=== PATIENT | female | born 2000 | race Hispanic/Latino ===

== ENCOUNTER 2020-02-03 10:38 | Emergency (ER) | payer BC ==
[~2020-02-03] VITALS: Ht 160 cm; Wt 61.2 kg
--- OUTSIDE RECORDS SUMMARY | 2020-02-03 11:24 | XMS REPORT | Clinical Summary ---
Author Author [facility] ict Organization [facility] ict Address Unknown Phone Unavailable Care Team Providers Care Adult Literacy Instructor Name Role Phone PCP Unavailable Allergies Comments Active Allergy Reactions Severity Noted Date Nsaids (Non-Steroidal 10/25/2017 Anti-Inflammatory Drug) Medications End Date Status Medication Sig Dispensed Refills Start Date Active ketorolac (TORADOL) 10 mg Take 10 mg by 0 tablet mouth every 6 hours as needed for Pain. Active esomeprazole (NEXIUM) 40 Take 40 mg by 0 mg delayed release mouth every capsule morning (before breakfast). Active Problems Problem Noted Date UTI (urinary tract infection) 10/26/2017 LLQ pain Encounters Care Team Description Date Type Specialty Francoise Parrish NP Cox, Haley, LVN Encounter for immunization (Primary Dx) 04/16/2019 Nurse Only Family Practice after 02/02/2019 Immunizations Name Administration Dates Next Due Hepatitis B Adult 04/16/2019 Social History Date Tobacco Use Types Packs/Day Years Used Quit: 05/01/2016 Former Smoker Cigarettes 0.5 Smokeless Tobacco: Never Used Tobacco Cessation: Counseling Given: Yes Sex Assigned at Date Recorded Not on file Industry Job Start Date Occupation Not on file Not on file Not on file Travel End Travel History Travel Start No recent travel history available. 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
--- OUTSIDE RECORDS SUMMARY | 2020-02-03 11:25 | XMS REPORT | Continuity of Care Document ---
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 11/16/2019 [facility] Medications Medication Details Route Status Patient Instructions Ordering Provider Order Date Source Xulane 1 patch to skin off 1 w [place] then repeat on the same day every week Transdermal Active 150-35 MCG/24HR Transdermal once weekly Yousif 11/14/2019 [facility] Xulane 1 patch to skin off 1 w [place] then repeat on the same day every week Transdermal Active 150-35 MCG/24HR Transdermal [facility] Nexium 1 capsule Orally Active 40 MG Orally Once a day [facility] Metformin HCl 1 tablet with a meal Orally Active 850 MG Orally Once a day [facility] Allergies, Adverse Reactions, Alerts Substance Category Reaction Severity Reaction type Status Date Reported Comments Source nsaids Adverse Reaction gastric ulcers Adverse Reaction Active 11/14/2019 [facility] Immunizations No Data Provided for This Section Results No Data Provided for This Section Pathology Reports No Data Provided for This Section Diagnostic Reports No Data Provided for This Section Consultation Notes No Data Provided for This Section Discharge Summaries No Data Provided for This Section History and Physicals No Data Provided for This Section Vital Signs Vital Sign Value Date Comments Source Weight 143.6 11/14/2019 [facility] Height 63 0 11/14/2019 [facility] Temperature Oral (F) 99.1 F 11/14/2019 [facility] Heart Rate 86 11/14/2019 [facility] Diastolic (mm Hg) 80 11/14/2019 [facility] Systolic (mm Hg) 118 11/14/2019 [facility] Encounters No Data Provided for This Section Procedures No Data Provided for This Section Assessment and Plan No Data Provided for This Section Plan of Care No Data Provided for This Section Social History No Data Provided for This Section Family History No Data Provided for This Section Advance Directives No Data Provided for This Section Functional Status No Data Provided for This Section
--- OUTSIDE RECORDS SUMMARY | 2020-02-03 11:25 | XMS REPORT | Continuity of Care Document ---
Author Author [facility] Organization [facility] Address [address] [place] [address] Phone Unavailable Care Team Providers Care Geriatrics Physician Name Role Phone Francois MANAGER FILE, Francoise Attphys Jesus BLACKNLa Attphys Payers Payer Name Policy Type Policy Number Effective Date Expiration Date [facility] [id number] UNSCREENEDxxxxxxxx [id number] [place] [address] xxxxxxxxx 2017 00:00:00 [facility] Problems Condition Name Condition Details Condition Category Status Onset Date Resolution Date Last Treatment Date Treating Clinician Comments Source UTI (urinary tract infection) UTI (urinary tract infection) Disease Active 2017-10-26 00:00:00 [facility] Paresthesia Pare sthesia Active Problem 12/12/2019 [facility] Problem Active 2 02:01:16 Mando Merrill PCOS (polycystic ovarian syndrome) PCOS (polycystic ovarian syndrome) Active Problem 12/12/2019 [facility] Problem Active 2019-12-12 02:01:16 Mando Merrill 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 11/16/2019 [facility] Diagnosis Active 2019-11-16 02:02:25 Hay Merrill LLQ pain LLQ pain Disease Active [facility] Allergies, Adverse Reactions, Alerts Allergy Name Allergy Type Status Severity Reaction(s) Onset Date Inacti ve Date Treating Clinician Comments Source nsaids nsaids Active gastric ulcers 2019-11-14 00:00:00 [facility] NSAIDS (Non-Steroidal Anti-Inflamma DA Active U 2018-01-01 0 00:00:00 [facility] Nsaids (Non-Steroidal Anti-Inflammatory Drug) Propensi ty to adverse reactions to drug Active 2017-10-25 00:00:00 [facility] NSAIDS (Non-Steroidal Anti-Inflamma DA Active U 2 00:00:00 [facility] Social History Social Habit Start Date Stop Date Quantity Comments Source Sex Assigned At [facility] History of tobacco use 2016-05-01 00:00:00 Current smoker [facility] Smoking Status Start Date Stop Date Source Former smoker 2019-04-16 00:00:00 2019-04-16 00:00:00 [facility] Medications Ordered Medication Name Filled Medication Name Start Date Stop Da te Current Medication? Ordering Clinician Indication Dosage Frequency Signature (SIG) Comments Components Source Xulane 2019-11-16 02:02:25 Yes Margaret Yousif 1 patch to skin off 1 week then repeat on the same day every week [facility] Nexium 2019-11-16 02:02:25 Yes Margaret Yousif 1 ca psule [facility] Metformin HCl 2019-11-16 02:02:25 Yes Margaret Yousif 1 tablet with a meal [facility] Xulane 2019-11-14 00:00:00 Yes Margaret Yousif 1 patch to skin off 1 week then repeat on the same day every week [facility] esomeprazole (NEXIUM) 40 mg delayed release capsule 10-26 11:30:06 Yes 40mg QD Take 40 mg by mouth every morning (befor e breakfast). [facility] ketorolac (TORADOL) 10 mg tablet 2017-10-26 10:49:28 Yes 10mg Take 10 mg by mouth every 6 hours as needed for Pain. [facility] Immunizations Ordered Immunization Name Filled Immunization Name Date Status Comments Source Hepatitis B Adult 2019-04-16 00:00:00 Completed [facility] Vital Signs Vital Name Observation Time Observation Value Comments Source Weight 2019-11-14 19:00:00 [facility] Height 2019-11-14 19:00:00 [facility] Temperature Oral (F) 2019-11-14 19:00:00 99.1 F [facility] Heart Rate 2019-11-14 19:00:00 [facility] Diastolic (mm Hg) 2019-11-14 19:00:00 [facility] Systolic (mm Hg) 2019-11-14 19:00:00 [facility] [place] Systolic blood pressure 2019-04-16 09:09:00 114 mm[Hg] [facility] Diastolic blood pressure 2019-04-16 09:09:00 64 mm[Hg] [facility] Heart rate 2019-04-16 09:09:00 69 /min [facility] Body height 2019-04-16 09:09:00 169 cm [facility] Body weight 2019-04-16 09:09:00 69.4 kg [facility] ealth BMI 2019-04-16 09:09:00 24.30 kg/m2 [facility] ealt Procedures This patient has no known procedures. Plan of Care Planned Activity Planned Date Details Comments Source Future Scheduled Test 2020-01-30 00:00:00 IMM Influenza Seas onal Jan to June (>/= 19 yrs) [code = IMM Influenza Seasonal Jan to June (>/= 19 yrs)] [facility] Encounters Start Date/Time End Date/Time Encounter Type Admission Type [facility] Care Department Encounter ID Source 2019-12-10 16:04:00 2019-12-10 16:04:00 Outpatient [facility] [id number] [employer] 2019-11-14 14:00:00 2019-11-14 14:00:00 Outpatient [facility] [id number] [employer] 2017-10-26 13:47:45 2017-10-26 13:47:45 Emergency [facility] [id number] [facility] 2017-10-26 09:10:29 2017-10-26 09:10:29 Emergency [facility] [id number] [facility] Results Test Description Test Time Test Comments Results Result Comments Source - XR TIBIA/FIBULA 2 V LT 2020-02-03 05:19:00 FA X: Lenka Bales [phone]: [address]: REG -- Name: DENISE MONTOYA [facility] : 2000 Age/S: 19/F [address] [facility] Unit #: [id number] Loc: TIFFANIE Cuellar [address] Phys: Lenka Benton MD Acct: [id number] Dis Date: Status: REG ER PHONE #: [phone] Exam Date: 02/03/2020 5026 FAX #: [phone] Reason: PAIN EXAMS: CPT CODE: [id number] XR TIBIA/[place] 2 [place] [address] DICTATION LOCATION: 8 HISTORY: Female, 19 years of age with left leg pain PROCEDURE(S): LEFT TIBIA AND FIBULA, 2 VIEWS COMPARISON: None COMMENT: No significant soft tissue swelling or arthropathy. No acute fracture, dislocation, periosteal reaction, osteolytic or osteoblastic lesion. IMPRESSION: No acute bony abnormality. at 0518 Reported and signed by: Triny Vaz MD CC: Lenka Benton MD Technologist: Boyd LORD(R) Trnscrd Date/Time/By: 02/03/2020 (05) : By: Steven Orig Print D/T: S: 02/03/2020 (5606) PAGE 1 Signed Report
[2020-02-03 11:42] LABS: BASOPHILS # (AUTO) 0.1 (0.0-0.1); BASOPHILS % 0.5 % (0.0-1.0); EOSINOPHILS # (AUTO) 0.1 (0.0-0.4); EOSINOPHILS % 0.8 % (0.0-6.0); HEMATOCRIT 40.2 % (34.2-44.1); HEMOGLOBIN 13.7 g/dL (12.0-16.0); LYMPHOCYTES # (AUTO) 4.3 (1.0-3.2); LYMPHOCYTES % 40.5 % (18.0-39.1); MEAN CORPUSCULAR HEMOGLOBIN 30.5 pg (28-32); MEAN CORPUSCULAR HGB CONC 34.1 g/dL (31-35); MEAN CORPUSCULAR VOLUME 89.5 fL (81-99); MONOCYTES # (AUTO) 0.8 (0.2-0.8); NEUTROPHILS # (AUTO) 5.4 (2.1-6.9); PLATELET COUNT 323 x10e3/uL (140-360); RED BLOOD COUNT 4.49 x10e6/uL (3.6-5.1); RED CELL DISTRIBUTION WIDTH 12.2 % (11.7-14.4)
[2020-02-03 11:48] LABS: INR 0.94
[2020-02-03 11:49] LABS: PARTIAL THROMBOPLASTIN TIME 28.7 seconds (23.8-35.5)
[2020-02-03 12:03] LABS: ALANINE AMINOTRANSFERASE 12 IU/L (0-55); ALBUMIN 4.5 g/dL (3.5-5.0); ALBUMIN/GLOBULIN RATIO 1.2 (0.8-2.0); ALKALINE PHOSPHATASE 49 IU/L (40-150); ANION GAP 12.9 mmol/L (8-16); BLOOD UREA NITROGEN 7 mg/dL (7-26); BUN/CREATININE RATIO 8 (6-25); CALCIUM 9.9 mg/dL (8.4-10.2); CARBON DIOXIDE 24 mmol/L (22-29); CHLORIDE 109 mmol/L (98-107); CREATININE, SERUM 0.88 mg/dL (0.57-1.11); EST GLOMERULAR FILTRATION RATE > 60 ML/MIN (60-); GLUCOSE 91 mg/dL (74-118); POTASSIUM 3.9 mmol/L (3.5-5.1); SODIUM 142 mmol/L (136-145)
[2020-02-03] MEDS ORDERED: KETOROLAC TROMETHAMINE 30 MG/ML VIAL IV STA (12:12)
[2020-02-03] MEDS ORDERED: HYDROCODONE/APAP 5MG-325MG TAB PO ONE (12:15)
--- NOTE | 2020-02-03 12:56 | Emergency Department Note ---
History of Present Illnes History of Present Illness Chief Complaint: General Medicine Complaints History of Present Illness This is a 19 year old female hief Complaint Comment PATIENT IN FROM HOME WITH COMPLAINTS OF LEFT LEG PAIN FROM KNEE TO TOES STARTING LAST NIGHT; PATIENT STATES THAT SHE WAS TOLD SHE HAD A COMPRESSED NERVE IN HER BACK AND THAT WAS WHY HER TOE HAD GONE NUMB. PATIENT ALERT AND ORIETNED, RESP EVEN AND NONLABORED, APPEARS IN NO DISTRESS. RATES PAIN 5/10 . Historian: Patient, Family Member Arrival Mode: Car Onset (how long ago): day(s) (2) Location: LEFT LEG Quality: SHARP Radiation: Denies non-radiation, Denies back, Denies neck, Denies extremity, Denies abdomen, Denies periumbilical, Denies flank, Denies proximal, Denies distal, Denies other Severity: moderate Onset quality: gradual Duration (how long): day(s) (2) Timing of current episode: constant Progression: unchanged Chronicity: new Context: Denies recent illness, Denies recent surgery, Denies recent immobilization, Denies recent travel, Denies trauma/injury, Denies new medications, Denies hx of DVT/PE, Denies non-compliance w/ medications, Denies other Relieving factors: rest Exacerbating factors: movement Associated symptoms: Denies denies other symptoms, Denies confusion, Denies chest pain, Denies cough, Denies diaphoresis, Denies fever/chills, Denies headaches, Denies loss of appetite, Denies malaise, Denies nausea/vomiting, Denies rash, Denies seizure, Denies shortness of breath, Denies syncope, Denies weakness, Denies other Past Medical/Family History Physician Review I have reviewed the patient's past medical and family history. Any updates have been documented here. Past Medical History Recent Fever: No Clinical Suspicion of Infectio: No New/Unexplained Change in Ment: No Past Medical History: Diabetes Other Medical History: PCOS Other Surgery: EXP LAP FOR ENDOMETRIOSIS Social History Smoking Cessation: Never Smoker Counseling Performed: No Alcohol Use: None Any Illegal Drug Use: No Physically hurt or threatened: No Review of Systems Review of Systems Constitutional: Reports no symptoms EENTM: Reports no symptoms Cardiovascular: Reports no symptoms Respiratory: Reports no symptoms Gastrointestinal: Reports no symptoms Genitourinary: Reports no symptoms Musculoskeletal: Reports as per HPI Integumentary: Reports no symptoms Neurological: Reports no symptoms Psychological: Reports no symptoms Endocrine: Reports no symptoms Hematological/Lymphatic: Reports no symptoms Physical Exam Related Data Allergies: Coded Allergies: No Known Allergies (Unverified , 02/03/20) Triage Vital Signs Vital Signs Date Time Temp Pulse Resp B/P (MAP) Pulse Ox O2 Delivery O2 Flow Rate FiO2 02/03/20 10:47 97.1 83 18 142/87 100 Room Air Vital signs reviewed: Yes Physical Exam CONSTITUTIONAL Constitutional: Present well-developed, Present well-nourished HENT HENT: Present normocephalic, Present atraumatic, Present oropharynx clear/moist, Present nose normal HENT L/R: Present left ext ear normal, Present right ext ear normal EYES Eyes: Reports PERRL, Reports conjunctivae normal NECK Neck: Present ROM normal PULMONARY Pulmonary: Present effort normal, Present breath sounds normal CARDIOVASCULAR Cardiovascular: Present regular rhythm, Present heart sounds normal, Present capillary refill normal, Present normal rate GASTROINTESTINAL Abdominal: Present soft, Present nontender, Present bowel sounds normal GENITOURINARY Genitourinary: Present exam deferred SKIN Skin: Present warm, Present dry MUSCULOSKELETAL Musculoskeletal: Present ROM normal NEUROLOGICAL Neurological: Present alert, Present oriented x 3, Present no gross motor or sensory deficits PSYCHOLOGICAL Psychological: Present mood/affect normal, Present judgement normal Results Laboratory Result Diagram: 02/03/20 1117 02/03/20 1117 Laboratory Laboratory Tests Test 02/03/20 11:17 White Blood Count 10.64 x10e3/uL (4.8-10.8) Red Blood Count 4.49 x10e6/uL (3.6-5.1) Hemoglobin 13.7 g/dL (12.0-16.0) Hematocrit 40.2 % (34.2-44.1) Mean Corpuscular Volume 89.5 fL (81-99) Mean Corpuscular Hemoglobin 30.5 pg (28-32) Mean Corpuscular Hemoglobin Concent 34.1 g/dL (31-35) Red Cell Distribution Width 12.2 % (11.7-14.4) Platelet Count 323 x10e3/uL (140-360) Neutrophils (%) (Auto) 51.0 % (38.7-80.0) Lymphocytes (%) (Auto) 40.5 % (18.0-39.1) Monocytes (%) (Auto) 7.0 % (4.4-11.3) Eosinophils (%) (Auto) 0.8 % (0.0-6.0) Basophils (%) (Auto) 0.5 % (0.0-1.0) Neutrophils # (Auto) 5.4 (2.1-6.9) Lymphocytes # (Auto) 4.3 (1.0-3.2) Monocytes # (Auto) 0.8 (0.2-0.8) Eosinophils # (Auto) 0.1 (0.0-0.4) Basophils # (Auto) 0.1 (0.0-0.1) Absolute Immature Granulocyte (auto 0.02 x10e3/uL (0-0.1) Prothrombin Time 13.0 seconds (11.9-14.5) Prothromb Time International Ratio 0.94 Activated Partial Thromboplast Time 28.7 seconds (23.8-35.5) Sodium Level 142 mmol/L (136-145) Potassium Level 3.9 mmol/L (3.5-5.1) Chloride Level 109 mmol/L (98-107) Carbon Dioxide Level 24 mmol/L (22-29) Anion Gap 12.9 mmol/L (8-16) Blood Urea Nitrogen 7 mg/dL (7-26) Creatinine 0.88 mg/dL (0.57-1.11) Estimat Glomerular Filtration Rate > 60 ML/MIN (60-) BUN/Creatinine Ratio 8 (6-25) Glucose Level 91 mg/dL (74-118) Calcium Level 9.9 mg/dL (8.4-10.2) Total Bilirubin 0.7 mg/dL (0.2-1.2) Aspartate Amino Transf (AST/SGOT) 17 IU/L (5-34) Alanine Aminotransferase (ALT/SGPT) 12 IU/L (0-55) Alkaline Phosphatase 49 IU/L (40-150) Total Protein 8.2 g/dL (6.5-8.1) Albumin 4.5 g/dL (3.5-5.0) Globulin 3.7 g/dL (2.3-3.5) Albumin/Globulin Ratio 1.2 (0.8-2.0) Lab results reviewed: Yes Imaging Imaging results reviewed: Yes Assessment & Plan Medical Decision Making MDM DVT MUSCULOSKELETAL Reassessment Reassessment time: 12:56 Reassessment BETTER Assessment & Plan Final Impression: (1) Leg pain Depart Disposition: HOME, SELF-CARE Last Vital Signs Date Time Temp Pulse Resp B/P (MAP) Pulse Ox O2 Delivery O2 Flow Rate FiO2 02/03/20 11:33 98.0 76 18 117/74 100 Room Air Medications in the ED Ketorolac Tromethamine 15 mg ONCE STAT IV Last administered on 02/03/20at 12:24; Admin Dose 15 MG; Start 02/03/20 at 12:12; Stop 02/03/20 at 12:16; Status DC Acetaminophen/ Hydrocodone Bitart 1 ea ONCE ONCE PO Last administered on 02/03/20at 12:25; Admin Dose 1 EA; Start 02/03/20 at 12:15; Stop 02/03/20 at 12:16; Status DC SUNSHINE THAKKAR MD Feb 03, 2020 12:56
[2020-02-03 13:05] VITALS: BP 114/67
== END 2020-02-03 13:10 | disposition home or self-care (01) ==
LOC: ER 11:22
DX: M79.605 Pain in left leg (principal); E11.9 Type 2 diabetes mellitus without complications; E28.2 Polycystic ovarian syndrome
CPT/HCPCS: 36415; 80053; 85025; 85610; 85730; 93971; 99284; J1885

== ENCOUNTER 2024-05-29 17:42 | Emergency (ER) | payer BC, OTHER ==
[~2024-05-29] VITALS: Ht 154.9 cm; Wt 70.3 kg
[2024-05-29] MEDS ORDERED: KETOROLAC TROMETHAMINE 60 MG/2 ML VIAL ONE (18:21)
[2024-05-29] MEDS: KETOROLAC TROMETHAMINE 60 MG/2 ML VIAL IM ONE (18:27)
[2024-05-29] MEDS: ONDANSETRON HCL 4 MG ORAL DISINTEGRATING TAB PO STA (19:16)
[2024-05-29] MEDS ORDERED: FIORICET 50-301 EACH PO (20:47)
[2024-05-29] MEDS ORDERED: ONDANSETRON ODT4 MG PO (20:47)
[2024-05-29] MEDS: METOCLOPRAMIDE HCL 10 MG/2ML VIAL IM STA (20:47)
[2024-05-29] MEDS: DIPHENHYDRAMINE HCL 25 MG CAP PO STA (20:47)
[2024-05-29 20:52] VITALS: PULSE 72; RESP 16; TEMP 98.5
[2024-05-29 21:23] VITALS: BP 105/72; PULSE 72; RESP 16; TEMP 98.5; O2SAT 97
== END 2024-05-29 21:26 | disposition home or self-care (01) ==
LOC: ER 18:04
DX: S06.0X0A Concussion without loss of consciousness, initial encounter (principal); R51.9 Headache, unspecified; M25.552 Pain in left hip; R11.2 Nausea with vomiting, unspecified; W10.8XXA Fall (on) (from) other stairs and steps, initial encounter; Y93.01 Activity, walking, marching and hiking; Y92.89 Other specified places as the place of occurrence of the external cause; I10 Essential (primary) hypertension; E28.2 Polycystic ovarian syndrome
CPT/HCPCS: 70450; 81025; 99284; J1885; J2765; Q0162

== ENCOUNTER 2024-08-21 12:28 | Emergency (ER) | payer OTHER ==
[~2024-08-21] VITALS: Ht 165.1 cm; Wt 70.3 kg
[~2024-08-21 12:28] MED LIST: FIORICET 50-301 EACH PO; ONDANSETRON ODT4 MG PO
[2024-08-21 12:36] VITALS: PULSE 73; RESP 16; TEMP 97.1; O2SAT 100
[2024-08-21] MEDS ORDERED: ST. JOSEPH ASPI81 M2 PO (12:45)
[2024-08-21] MEDS ORDERED: NEURONTIN100 MG PO (12:45)
[2024-08-21] MEDS ORDERED: ALDACTONE100 MG PO (12:45)
[2024-08-21] MEDS ORDERED: VRAYLAR3 MG PO (12:45)
[2024-08-21] MEDS ORDERED: METOPROLOL SUCC50 MG PO (12:45)
[2024-08-21] MEDS ORDERED: LAMICTAL200 MG PO (12:45)
[2024-08-21] MEDS: SODIUM CHLORIDE 0.9% 1000ML 1,000 ML IV STA (12:59)
[2024-08-21] MEDS: DICYCLOMINE HCL 20 MG/2 ML VIAL IM ONE (12:59)
[2024-08-21 13:02] LABS: BASOPHILS % 0.1 % (0.0-1.0); EOSINOPHILS # (AUTO) 0.1 (0.0-0.4); EOSINOPHILS % 0.9 % (0.0-6.0); HEMATOCRIT 38.9 % (34.2-44.1); HEMOGLOBIN 13.2 g/dL (12.0-16.0); LYMPHOCYTES % 28.4 % (18.0-39.1); MEAN CORPUSCULAR HEMOGLOBIN 31.1 pg (28-32); MEAN CORPUSCULAR HGB CONC 33.9 g/dL (31-35); MEAN CORPUSCULAR VOLUME 91.7 fL (81-99); MONOCYTES # (AUTO) 0.5 (0.2-0.8); MONOCYTES % 7.4 % (4.4-11.3); NEUTROPHILS # (AUTO) 4.4 (2.1-6.9); NEUTROPHILS % 63.1 % (38.7-80.0); PLATELET COUNT 298 x10e3/uL (140-360); RED BLOOD COUNT 4.24 x10e6/uL (3.6-5.1); RED CELL DISTRIBUTION WIDTH 12.6 % (11.7-14.4); WHITE BLOOD COUNT 6.91 x10e3/uL (4.8-10.8)
[2024-08-21] MEDS: ONDANSETRON HCL INJ 2MG/ML 2ML 2 MG/ML VIAL IV PRN (13:06)
[2024-08-21 13:19] LABS: ALBUMIN 4.1 g/dL (3.5-5.0); ALBUMIN/GLOBULIN RATIO 1.4 (0.8-2.0); ANION GAP 14.1 mmol/L (8-16); BILIRUBIN,TOTAL 0.4 mg/dL (0.2-1.2); CALCIUM 8.8 mg/dL (8.4-10.2); CREATININE, SERUM 0.84 mg/dL (0.57-1.11); POTASSIUM 4.1 mmol/L (3.5-5.1); TOTAL PROTEIN 7.1 g/dL (6.5-8.1)
[2024-08-21 13:41] LABS: CORONAVIRUS COVID-19 AG NEGATIVE (NEGATIVE); INFLUENZA A AG NEGATIVE (NEGATIVE); INFLUENZA B AG NEGATIVE (NEGATIVE); STREPTOCOCCUS GRP A ANTIGEN NEGATIVE (NEGATIVE)
[2024-08-21] MEDS ORDERED: DICYCLOMINE HCL20 MG PO (14:10)
[2024-08-21] MEDS ORDERED: ONDANSETRON ODT4 MG PO (14:10)
[2024-08-21 14:18] VITALS: BP 109/66; PULSE 67; RESP 16
== END 2024-08-21 14:19 | disposition home or self-care (01) ==
LOC: ER 12:32
DX: R11.2 Nausea with vomiting, unspecified (principal); K52.9 Noninfective gastroenteritis and colitis, unspecified; R05.9 Cough, unspecified; I10 Essential (primary) hypertension; E28.2 Polycystic ovarian syndrome
CPT/HCPCS: 36415; 80053; 83518; 83690; 84702; 85025; 87070; 99283; J2405; J2470; J7030